=== PATIENT | female | born 1960 | race American Indian/Alaskan Native ===

== ENCOUNTER 2017-07-08 16:15 | Inpatient (IN) | payer MEDICAID ==
[~2017-07-08] VITALS: Ht 177.8 cm; Wt 143.6 kg
[~2017-07-08 16:15] MED LIST: COU5T PO; FURO-150 PO; HYDR-4069 PO; INSU100V36 SQ; LANTUS SQ; LISI-600 PO; METO-539 PO; PER10325T PO; POTA8CAP17 PO; SERT100T PO
[2017-07-08] MEDS ORDERED: ONDA8TAB6 PO (18:36)
[2017-07-08 19:08] LABS: BASOPHILS # (AUTO) 0.1 X10'3 (0-0.2); BASOPHILS % (AUTO) 0.4 % (0-1); EOSINOPHILS # (AUTO) 0.2 X10'3 (0-0.9); EOSINOPHILS % (AUTO) 1.4 % (0-6); HEMATOCRIT 25.1 % (35.0-45.0); HEMOGLOBIN 7.9 g/dl (12.0-16.0); LYMPHOCYTES # (AUTO) 0.9 X10'3 (1.1-4.8); LYMPHOCYTES % (AUTO) 6.5 % (21-51); MEAN CORPUSCULAR HEMOGLOBIN 23.9 PG (27.0-31.0); MEAN CORPUSCULAR HGB CONC 31.7 % (33.0-36.5); MEAN CORPUSCULAR VOLUME 75.4 FL (78-98); MEAN PLATELET VOLUME 7.7 FL (7.4-10.4); MONOCYTES # (AUTO) 0.5 X10'3 (0-0.9); MONOCYTES % (AUTO) 3.7 % (2-12); NEUTROPHILS # (AUTO) 12.8 X10'3 (1.8-7.7); PLATELET COUNT 364 X10'3 (140-440); RED BLOOD COUNT 3.33 X10'6 (4.20-5.60); RED CELL DISTRIBUTION WIDTH 19.8 % (11.5-14.5); WHITE BLOOD COUNT 14.6 X10'3 (4.5-11.0)
[2017-07-08 19:19] LABS: ALANINE AMINOTRANSFERASE 40 U/L (12-78); ALBUMIN 1.7 G/DL (3.4-5.0); ALBUMIN/GLOBULIN RATIO 0.3 (1.1-1.5); ALKALINE PHOSPHATASE 295 IU/L (46-116); ANION GAP 8 (8-16); ASPARTATE AMINO TRANSFERASE 26 U/L (10-37); BILIRUBIN,TOTAL 0.3 MG/DL (0.1-1.0); BLOOD UREA NITROGEN 30 MG/DL (7-18); BUN/CREATININE RATIO 21.4 (6.6-38.0); CHLORIDE 97 MMOL/L (99-107); GLUCOSE 328 MG/DL (70-104); POTASSIUM 5.3 MMOL/L (3.5-5.1); SODIUM 132 MMOL/L (135-145); TOTAL CARBON DIOXIDE 27.2 MMOL/L (24-32); TOTAL PROTEIN 7.2 G/DL (6.4-8.2); eGFR 39 ML/MIN
[2017-07-08] MEDS ORDERED: piperacillin/tazo 3.375gm/50ml 50 ML IV ONE (20:00)
[2017-07-08] MEDS ORDERED: vancomycin/NS 1 GM ADD-VANTAGE 250 ML IV ONE (20:00)
[2017-07-08 20:07] LABS: TOTAL CELLS COUNTED 100
[2017-07-08 20:08] LABS: ANISOCYTOSIS 1+; HYPOCHROMASIA 1+; PLATELET ESTIMATE NORMAL; POLYCHROMASIA 1+; TOXIC GRANULATION 1+
[2017-07-08] MEDS ORDERED: normal saline 1000ml 1,000 ML IV ONE (21:50)
[2017-07-08] MEDS ORDERED: HYDROcodone/acetaminophen 10/325mg tab PO ONE (21:50)
[2017-07-09] MEDS: sodium chloride 0.45% 1,000 ML IV SCH ×3 (00:01→16:12)
[2017-07-09] MEDS ORDERED: mag hydrox/Alum hydrox/simeth 30ml oral suspension PO PRN (00:05)
[2017-07-09] MEDS ORDERED: magnesium 2GM in 50ml NS 50 ML IV PRN (00:05)
[2017-07-09] MEDS ORDERED: potassium Cl 20 mEq SR tablet PO PRN ×2 (00:05)
[2017-07-09] MEDS ORDERED: magnesium 4gm in 100ml NS 100 ML IV PRN (00:05)
[2017-07-09] MEDS ORDERED: potassium Cl 40MEQ/NS 500ml 500 ML IV PRN ×2 (00:05)
[2017-07-09] MEDS ORDERED: HYDROmorphone 1 mg/ml syringe IV PRN ×2 (00:05)
[2017-07-09] MEDS ORDERED: magnesium hydroxide 30ml (MOM) UD suspension PO PRN (00:05)
[2017-07-09] MEDS ORDERED: magnesium Cl slow-release 64mg tablet PO PRN (00:05)
[2017-07-09 02:00] VITALS: BP 131/85
[2017-07-09] MEDS ORDERED: dextrose ORAL solution 15 GM/59 ML bottle PO PRN ×2 (02:40)
[2017-07-09] MEDS ORDERED: glucagon, human recombinant 1mg kit SUBCUT PRN (02:40)
[2017-07-09] MEDS ORDERED: MESSAGE TO PHARMACY PO ONE (02:40)
[2017-07-09] MEDS ORDERED: dextrose 50%-water 50ml dispensing syringe IV PRN ×2 (02:40)
[2017-07-09] MEDS ORDERED: insulin Lispro (HumaLOG) vial - multi-dose SQ ONE (03:12)
[2017-07-09] MEDS: insulin Lispro (HumaLOG) vial - multi-dose SQ SCH ×4 (03:16→20:04)
[2017-07-09 07:00] VITALS: BP 129/74
[2017-07-09] MEDS: furosemide 20MG tablet PO SCH (07:45)
[2017-07-09] MEDS: sertraline 50mg tablet PO SCH (07:45)
[2017-07-09] MEDS: hydrALAZINE 25 MG tablet PO SCH (07:46)
[2017-07-09] MEDS: lisinopril 20mg tablet PO SCH (07:46)
[2017-07-09] MEDS: metoprolol succinate 25mg (24-HOUR) SR. Tablet PO SCH ×2 (07:46→20:05)
[2017-07-09] MEDS: acetaminophen 325mg tablet PO PRN ×2 (07:47→20:11)
[2017-07-09 07:53] VITALS: BP 129/74
[2017-07-09] MEDS ORDERED: POTASSIUM CHLORIDE 8 MEQ PO SCH (08:00)
[2017-07-09] MEDS: K and/or MAG REPLACEMENT MC SCH (08:00)
[2017-07-09] MEDS ORDERED: vancomycin/NS 1 GM ADD-VANTAGE 250 ML IV SCH (08:00)
[2017-07-09] MEDS: piperacillin/tazo 4.5gm/100ml 100 ML IV SCH ×2 (09:21→16:13)
[2017-07-09 09:41] LABS: BASOPHILS % (AUTO) 0.2 % (0-1); EOSINOPHILS # (AUTO) 0.2 X10'3 (0-0.9); EOSINOPHILS % (AUTO) 1.7 % (0-6); LYMPHOCYTES # (AUTO) 0.8 X10'3 (1.1-4.8); LYMPHOCYTES % (AUTO) 6.8 % (21-51); MEAN CORPUSCULAR HEMOGLOBIN 24.1 PG (27.0-31.0); MEAN CORPUSCULAR HGB CONC 32.4 % (33.0-36.5); MEAN CORPUSCULAR VOLUME 74.6 FL (78-98); MEAN PLATELET VOLUME 7.8 FL (7.4-10.4); MONOCYTES # (AUTO) 0.4 X10'3 (0-0.9); MONOCYTES % (AUTO) 3.7 % (2-12); NEUTROPHILS # (AUTO) 10.2 X10'3 (1.8-7.7); NEUTROPHILS % (AUTO) 87.6 % (42-75); PRE OP HEMATOCRIT 23.9 % (35.0-45.0); PRE OP PLATELET COUNT 328 X10'3 (140-440); RED BLOOD COUNT 3.21 X10'6 (4.20-5.60); RED CELL DISTRIBUTION WIDTH 19.7 % (11.5-14.5)
[2017-07-09 09:49] LABS: PRE OP PROTIME 41.1 SECONDS (9.0-12.0)
[2017-07-09 09:56] LABS: PRE OP INR 4.2 INR
[2017-07-09 09:59] LABS: ALBUMIN 1.6 G/DL (3.4-5.0); ALBUMIN/GLOBULIN RATIO 0.3 (1.1-1.5); ALKALINE PHOSPHATASE 270 IU/L (46-116); BLOOD UREA NITROGEN 29 MG/DL (7-18); BUN/CREATININE RATIO 23.2 (6.6-38.0); CALCIUM 8.8 MG/DL (8.5-10.1); CHLORIDE 99 MMOL/L (99-107); CREATININE 1.25 MG/DL (0.40-0.90); PRE OP ALT 39 U/L (30-65); PRE OP ANION GAP 7 (8-16); PRE OP AST 23 U/L (10-37); PRE OP BILIRUB, TOTAL 0.4 MG/DL (0.0-1.0); PRE OP POTASSIUM 4.9 MMOL/L (3.4-5.1); PRE OP SODIUM 134 MMOL/L (135-145); TOTAL CARBON DIOXIDE 27.9 MMOL/L (24-32); TOTAL PROTEIN 7.1 G/DL (6.4-8.2); eGFR 44 ML/MIN
[2017-07-09 10:05] LABS: PRE OP GLUCOSE 274 MG/DL (70-104)
[2017-07-09 10:25] LABS: PRE OP HEMOGLOBIN 7.7 g/dL (12.0-16.0)
[2017-07-09 11:00] VITALS: BP 134/74
[2017-07-09] MEDS ORDERED: phytonadione 10 MG/1 ML amp PO ONE (11:15)
[2017-07-09 16:17] LABS: HEMATOCRIT 22.5 % (35.0-45.0); HEMOGLOBIN 7.4 g/dl (12.0-16.0); MEAN CORPUSCULAR HEMOGLOBIN 24.2 PG (27.0-31.0); MEAN CORPUSCULAR HGB CONC 32.8 % (33.0-36.5); MEAN CORPUSCULAR VOLUME 73.9 FL (78-98); MEAN PLATELET VOLUME 7.7 FL (7.4-10.4); PLATELET COUNT 341 X10'3 (140-440); RED BLOOD COUNT 3.04 X10'6 (4.20-5.60); RED CELL DISTRIBUTION WIDTH 19.9 % (11.5-14.5); WHITE BLOOD COUNT 11.2 X10'3 (4.5-11.0)
[2017-07-09 17:08] LABS: BASOPHILS % (AUTO) 0.2 % (0-1); EOSINOPHILS # (AUTO) 0.3 X10'3 (0-0.9); EOSINOPHILS % (AUTO) 2.2 % (0-6); HEMOGLOBIN 7.7 g/dl (12.0-16.0); LYMPHOCYTES # (AUTO) 0.8 X10'3 (1.1-4.8); LYMPHOCYTES % (AUTO) 6.2 % (21-51); MEAN CORPUSCULAR HEMOGLOBIN 23.9 PG (27.0-31.0); MEAN CORPUSCULAR VOLUME 74.8 FL (78-98); MEAN PLATELET VOLUME 7.2 FL (7.4-10.4); MONOCYTES # (AUTO) 0.5 X10'3 (0-0.9); MONOCYTES % (AUTO) 3.7 % (2-12); NEUTROPHILS % (AUTO) 87.7 % (42-75); PLATELET COUNT 357 X10'3 (140-440); RED BLOOD COUNT 3.21 X10'6 (4.20-5.60); RED CELL DISTRIBUTION WIDTH 19.2 % (11.5-14.5); WHITE BLOOD COUNT 12.5 X10'3 (4.5-11.0)
[2017-07-09 17:16] LABS: INR 3.2 INR
[2017-07-09] MEDS ORDERED: diphenhydrAMINE 50 mg/ml inj IV ONE (18:50)
[2017-07-09] MEDS: lactobacillus rhamnosus 10,000 MMU CELLS/CAPSULE PO SCH (20:05)
[2017-07-09] MEDS: ondansetron/PF 4mg/2ml inj IV PRN (20:10)
[2017-07-09] MEDS ORDERED: furosemide 40mg/4ml inj IV ONE (20:50)
[2017-07-09] MEDS ORDERED: temazepam 15mg capsule PO PRN (21:00)
[2017-07-09] MEDS: Insulin Detemir pen SQ SCH (21:13)
[2017-07-09 21:29] VITALS: BP 136/64
[2017-07-10] VITALS (13 sets, daily range): BP systolic 109–141; BP diastolic 53–82
[2017-07-10 00:51] LABS: BASOPHILS % (AUTO) 0.2 % (0-1); EOSINOPHILS # (AUTO) 0.1 X10'3 (0-0.9); EOSINOPHILS % (AUTO) 0.4 % (0-6); HEMATOCRIT 24.9 % (35.0-45.0); HEMOGLOBIN 8.1 g/dl (12.0-16.0); LYMPHOCYTES # (AUTO) 1.4 X10'3 (1.1-4.8); LYMPHOCYTES % (AUTO) 9.2 % (21-51); MEAN CORPUSCULAR HEMOGLOBIN 24.2 PG (27.0-31.0); MEAN CORPUSCULAR HGB CONC 32.5 % (33.0-36.5); MEAN CORPUSCULAR VOLUME 74.4 FL (78-98); MEAN PLATELET VOLUME 7.6 FL (7.4-10.4); MONOCYTES # (AUTO) 0.5 X10'3 (0-0.9); MONOCYTES % (AUTO) 3.4 % (2-12); NEUTROPHILS # (AUTO) 12.8 X10'3 (1.8-7.7); NEUTROPHILS % (AUTO) 86.8 % (42-75); PLATELET COUNT 378 X10'3 (140-440); RED BLOOD COUNT 3.35 X10'6 (4.20-5.60); WHITE BLOOD COUNT 14.7 X10'3 (4.5-11.0)
[2017-07-10] MEDS: piperacillin/tazo 4.5gm/100ml 100 ML IV SCH ×3 (02:16→16:10)
[2017-07-10] MEDS: sodium chloride 0.45% 1,000 ML IV SCH ×3 (06:01→21:42)
[2017-07-10 06:05] LABS: BASOPHILS % (AUTO) 0.3 % (0-1); EOSINOPHILS # (AUTO) 0.2 X10'3 (0-0.9); EOSINOPHILS % (AUTO) 2.2 % (0-6); HEMATOCRIT 22.7 % (35.0-45.0); HEMOGLOBIN 7.3 g/dl (12.0-16.0); LYMPHOCYTES # (AUTO) 0.8 X10'3 (1.1-4.8); LYMPHOCYTES % (AUTO) 6.7 % (21-51); MEAN CORPUSCULAR HEMOGLOBIN 24.1 PG (27.0-31.0); MEAN CORPUSCULAR HGB CONC 32.3 % (33.0-36.5); MEAN CORPUSCULAR VOLUME 74.5 FL (78-98); MEAN PLATELET VOLUME 7.6 FL (7.4-10.4); MONOCYTES # (AUTO) 0.5 X10'3 (0-0.9); MONOCYTES % (AUTO) 4.3 % (2-12); NEUTROPHILS # (AUTO) 9.8 X10'3 (1.8-7.7); NEUTROPHILS % (AUTO) 86.5 % (42-75); PLATELET COUNT 344 X10'3 (140-440); RED BLOOD COUNT 3.05 X10'6 (4.20-5.60); RED CELL DISTRIBUTION WIDTH 19.6 % (11.5-14.5); WHITE BLOOD COUNT 11.3 X10'3 (4.5-11.0)
[2017-07-10 06:28] LABS: INR 1.7 INR; PROTHROMBIN TIME 17.1 SECONDS (9.0-12.0)
[2017-07-10 06:56] LABS: ALANINE AMINOTRANSFERASE 36 U/L (12-78); ALBUMIN 1.6 G/DL (3.4-5.0); ALBUMIN/GLOBULIN RATIO 0.3 (1.1-1.5); ALKALINE PHOSPHATASE 280 IU/L (46-116); ANION GAP 8 (8-16); ASPARTATE AMINO TRANSFERASE 25 U/L (10-37); BILIRUBIN,TOTAL 0.7 MG/DL (0.1-1.0); BLOOD UREA NITROGEN 19 MG/DL (7-18); BUN/CREATININE RATIO 16.1 (6.6-38.0); CALCIUM 8.6 MG/DL (8.5-10.1); CHLORIDE 100 MMOL/L (99-107); CHOL/HDL RATIO 4.5 (0.00-4.99); CHOLESTEROL 108 MG/DL (0-200); CREATININE 1.18 MG/DL (0.40-0.90); GLUCOSE 222 MG/DL (70-104); HDL CHOLESTEROL 24 MG/DL (35-60); LDL CHOLESTEROL 70 MG/DL (50-100); MAGNESIUM 1.3 MG/DL (1.5-2.4); POTASSIUM 4.4 MMOL/L (3.5-5.1); SODIUM 136 MMOL/L (135-145); TOTAL CARBON DIOXIDE 27.7 MMOL/L (24-32); TOTAL PROTEIN 6.7 G/DL (6.4-8.2); TRIGLYCERIDES 72 MG/DL (20-135); eGFR 47 ML/MIN
[2017-07-10] MEDS: K and/or MAG REPLACEMENT MC SCH (08:00)
[2017-07-10] MEDS: metoprolol succinate 25mg (24-HOUR) SR. Tablet PO SCH ×2 (08:10→20:51)
[2017-07-10] MEDS: lactobacillus rhamnosus 10,000 MMU CELLS/CAPSULE PO SCH ×2 (08:10→20:52)
[2017-07-10] MEDS: sertraline 50mg tablet PO SCH (08:10)
[2017-07-10] MEDS: lisinopril 20mg tablet PO SCH (08:10)
[2017-07-10] MEDS: hydrALAZINE 25 MG tablet PO SCH (08:10)
[2017-07-10] MEDS: furosemide 20MG tablet PO SCH (08:11)
[2017-07-10] MEDS ORDERED: heparin 10,000 units/1 ML INJ IV ONE (08:40)
[2017-07-10 09:25] LABS: PARTIAL THROMBOPLASTIN TIME 44 SECONDS (22-32)
[2017-07-10] MEDS: insulin Lispro (HumaLOG) vial - multi-dose SQ SCH ×2 (09:28→19:00)
[2017-07-10] MEDS: oxyCODONE/APAP 10/325mg tablet PO PRN ×2 (09:35→17:19)
[2017-07-10 12:14] LABS: BASOPHILS # (AUTO) 0.1 X10'3 (0-0.2); BASOPHILS % (AUTO) 0.8 % (0-1); EOSINOPHILS # (AUTO) 0.2 X10'3 (0-0.9); EOSINOPHILS % (AUTO) 1.9 % (0-6); HEMATOCRIT 24.7 % (35.0-45.0); HEMOGLOBIN 7.8 g/dl (12.0-16.0); LYMPHOCYTES # (AUTO) 0.9 X10'3 (1.1-4.8); LYMPHOCYTES % (AUTO) 7.7 % (21-51); MEAN CORPUSCULAR HEMOGLOBIN 23.7 PG (27.0-31.0); MEAN CORPUSCULAR HGB CONC 31.7 % (33.0-36.5); MEAN CORPUSCULAR VOLUME 74.9 FL (78-98); MEAN PLATELET VOLUME 7.5 FL (7.4-10.4); MONOCYTES # (AUTO) 0.4 X10'3 (0-0.9); MONOCYTES % (AUTO) 3.5 % (2-12); NEUTROPHILS # (AUTO) 10.4 X10'3 (1.8-7.7); NEUTROPHILS % (AUTO) 86.1 % (42-75); PLATELET COUNT 345 X10'3 (140-440); RED BLOOD COUNT 3.29 X10'6 (4.20-5.60); RED CELL DISTRIBUTION WIDTH 20.1 % (11.5-14.5); WHITE BLOOD COUNT 12.1 X10'3 (4.5-11.0)
[2017-07-10 12:44] LABS: OCCULT BLOOD STOOL NEGATIVE (Neg)
[2017-07-10 14:53] LABS: HEMATOCRIT 23.7 % (35.0-45.0); HEMOGLOBIN 7.6 g/dl (12.0-16.0); MEAN CORPUSCULAR HEMOGLOBIN 23.8 PG (27.0-31.0); MEAN CORPUSCULAR HGB CONC 31.9 % (33.0-36.5); MEAN CORPUSCULAR VOLUME 74.7 FL (78-98); MEAN PLATELET VOLUME 7.2 FL (7.4-10.4); PLATELET COUNT 348 X10'3 (140-440); RED BLOOD COUNT 3.18 X10'6 (4.20-5.60); WHITE BLOOD COUNT 10.8 X10'3 (4.5-11.0)
[2017-07-10] MEDS: heparin 10,000 units/1 ML INJ IV PRN ×2 (17:14→23:57)
[2017-07-10] MEDS: Insulin Detemir pen SQ SCH (20:47)
[2017-07-11] VITALS (21 sets, daily range): BP systolic 108–147; BP diastolic 53–80
[2017-07-11] MEDS: piperacillin/tazo 4.5gm/100ml 100 ML IV SCH ×3 (01:10→15:47)
[2017-07-11] MEDS: oxyCODONE/APAP 10/325mg tablet PO PRN (04:00)
[2017-07-11 06:10] LABS: BASOPHILS % (AUTO) 0.3 % (0-1); EOSINOPHILS # (AUTO) 0.3 X10'3 (0-0.9); EOSINOPHILS % (AUTO) 2.5 % (0-6); HEMATOCRIT 26.8 % (35.0-45.0); HEMOGLOBIN 8.6 g/dl (12.0-16.0); LYMPHOCYTES # (AUTO) 1.1 X10'3 (1.1-4.8); LYMPHOCYTES % (AUTO) 10.2 % (21-51); MEAN CORPUSCULAR HEMOGLOBIN 24.8 PG (27.0-31.0); MEAN CORPUSCULAR VOLUME 77.6 FL (78-98); MEAN PLATELET VOLUME 7.6 FL (7.4-10.4); MONOCYTES # (AUTO) 0.5 X10'3 (0-0.9); MONOCYTES % (AUTO) 4.1 % (2-12); NEUTROPHILS # (AUTO) 9.3 X10'3 (1.8-7.7); NEUTROPHILS % (AUTO) 82.9 % (42-75); PLATELET COUNT 330 X10'3 (140-440); RED BLOOD COUNT 3.45 X10'6 (4.20-5.60); RED CELL DISTRIBUTION WIDTH 20.4 % (11.5-14.5); WHITE BLOOD COUNT 11.2 X10'3 (4.5-11.0)
[2017-07-11 06:53] LABS: ALANINE AMINOTRANSFERASE 32 U/L (12-78); ALBUMIN 1.6 G/DL (3.4-5.0); ALBUMIN/GLOBULIN RATIO 0.3 (1.1-1.5); ALKALINE PHOSPHATASE 258 IU/L (46-116); ANION GAP 9 (8-16); ASPARTATE AMINO TRANSFERASE 18 U/L (10-37); BILIRUBIN,TOTAL 1.1 MG/DL (0.1-1.0); BLOOD UREA NITROGEN 16 MG/DL (7-18); BUN/CREATININE RATIO 12.9 (6.6-38.0); CALCIUM 8.5 MG/DL (8.5-10.1); CHLORIDE 101 MMOL/L (99-107); CREATININE 1.24 MG/DL (0.40-0.90); GLUCOSE 194 MG/DL (70-104); MAGNESIUM 1.3 MG/DL (1.5-2.4); POTASSIUM 4.1 MMOL/L (3.5-5.1); SODIUM 137 MMOL/L (135-145); TOTAL CARBON DIOXIDE 26.7 MMOL/L (24-32); TOTAL PROTEIN 6.8 G/DL (6.4-8.2); eGFR 45 ML/MIN
[2017-07-11] MEDS ORDERED: ringers solution, lacted 1,000 ML IV SCH (07:17)
[2017-07-11] MEDS ORDERED: fentaNYL/PF 50MCG/1 ML 2ML syringe IV PRN (07:20)
[2017-07-11] MEDS ORDERED: HYDROmorphone 1 mg/ml syringe IV PRN (07:20)
[2017-07-11] MEDS ORDERED: proCHLORperazine 10 MG/2 ml inj IV PRN (07:20)
[2017-07-11] MEDS ORDERED: ondansetron/PF 4mg/2ml inj IV PRN (07:20)
[2017-07-11] MEDS: lactobacillus rhamnosus 10,000 MMU CELLS/CAPSULE PO SCH ×2 (07:25→21:26)
[2017-07-11] MEDS: sertraline 50mg tablet PO SCH (07:26)
[2017-07-11] MEDS ORDERED: VANCOMYCIN LEVEL IV ONE (07:30)
[2017-07-11] MEDS ORDERED: fentaNYL/PF 50MCG/1 ML 2ML syringe ONE (07:41)
[2017-07-11] MEDS ORDERED: midazolam 2 mg/2 ml injection ONE (07:41)
[2017-07-11] MEDS: lisinopril 20mg tablet PO SCH (07:42)
[2017-07-11] MEDS ORDERED: LIDOcaine 2% (20mg/ml) 5ml vial ONE (07:42)
[2017-07-11] MEDS: hydrALAZINE 25 MG tablet PO SCH (07:42)
[2017-07-11] MEDS: metoprolol succinate 25mg (24-HOUR) SR. Tablet PO SCH ×2 (07:42→21:26)
[2017-07-11] MEDS ORDERED: rocuronium 10mg/ml inj IV ONE (07:42)
[2017-07-11] MEDS ORDERED: propofol inj 20 ML IV ONE (07:42)
[2017-07-11] MEDS: furosemide 20MG tablet PO SCH (08:00)
[2017-07-11] MEDS: K and/or MAG REPLACEMENT MC SCH (08:00)
[2017-07-11] MEDS ORDERED: LIDOcaine 1%/PF (10mg/ml) 5ml vial ONE ×2 (09:07)
[2017-07-11] MEDS ORDERED: sevoflurane 250ml liquid IH ONE (09:18)
[2017-07-11] MEDS ORDERED: ketamine 10mg/ml 20ml inj ONE (10:06)
[2017-07-11] MEDS ORDERED: dexamethasone sod phosphate 4mg/ml inj. ONE (10:13)
[2017-07-11] MEDS ORDERED: ondansetron/PF 4mg/2ml inj ONE (10:13)
[2017-07-11] MEDS ORDERED: glycopyrrolate 0.2mg/ml inj ONE (10:38)
[2017-07-11] MEDS ORDERED: neostigmine methylsulfate 1 MG/ML 10ml vial ONE (10:38)
[2017-07-11] MEDS: sodium chloride 0.45% 1,000 ML IV SCH (12:01)
[2017-07-11] MEDS ORDERED: HYDROmorphone/NS 1 mg/ml CADD 50 ML IV SCH (12:10)
[2017-07-11 13:18] LABS: BASOPHILS % (AUTO) 0.4 % (0-1); EOSINOPHILS # (AUTO) 0.2 X10'3 (0-0.9); HEMATOCRIT 27.7 % (35.0-45.0); HEMOGLOBIN 8.9 g/dl (12.0-16.0); LYMPHOCYTES # (AUTO) 0.6 X10'3 (1.1-4.8); LYMPHOCYTES % (AUTO) 5.9 % (21-51); MEAN CORPUSCULAR HEMOGLOBIN 24.6 PG (27.0-31.0); MEAN CORPUSCULAR HGB CONC 32.2 % (33.0-36.5); MEAN CORPUSCULAR VOLUME 76.3 FL (78-98); MEAN PLATELET VOLUME 7.4 FL (7.4-10.4); MONOCYTES # (AUTO) 0.2 X10'3 (0-0.9); NEUTROPHILS # (AUTO) 9.2 X10'3 (1.8-7.7); NEUTROPHILS % (AUTO) 89.7 % (42-75); PLATELET COUNT 337 X10'3 (140-440); RED BLOOD COUNT 3.63 X10'6 (4.20-5.60); RED CELL DISTRIBUTION WIDTH 20.1 % (11.5-14.5); WHITE BLOOD COUNT 10.2 X10'3 (4.5-11.0)
[2017-07-11 13:29] LABS: INR 1.4 INR; PROTHROMBIN TIME 14.5 SECONDS (9.0-12.0)
[2017-07-11] MEDS ORDERED: heparin 10,000 units/1 ML INJ IV ONE (16:30)
[2017-07-11] MEDS: vancomycin/NS 1 GM ADD-VANTAGE 250 ML IV SCH (17:10)
[2017-07-11] MEDS: heparin 10,000 units/1 ML INJ IV PRN (17:41)
[2017-07-11 17:47] LABS: BASOPHILS % (AUTO) 0.3 % (0-1); EOSINOPHILS # (AUTO) 0.2 X10'3 (0-0.9); EOSINOPHILS % (AUTO) 1.7 % (0-6); LYMPHOCYTES # (AUTO) 0.6 X10'3 (1.1-4.8); LYMPHOCYTES % (AUTO) 5.8 % (21-51); MEAN CORPUSCULAR HEMOGLOBIN 24.5 PG (27.0-31.0); MEAN CORPUSCULAR VOLUME 76.5 FL (78-98); MEAN PLATELET VOLUME 7.6 FL (7.4-10.4); MONOCYTES # (AUTO) 0.1 X10'3 (0-0.9); NEUTROPHILS # (AUTO) 9.1 X10'3 (1.8-7.7); NEUTROPHILS % (AUTO) 91.2 % (42-75); PLATELET COUNT 341 X10'3 (140-440); RED BLOOD COUNT 3.66 X10'6 (4.20-5.60); RED CELL DISTRIBUTION WIDTH 20.3 % (11.5-14.5)
[2017-07-11 18:01] LABS: INR 1.5 INR; PARTIAL THROMBOPLASTIN TIME 37 SECONDS (22-32); PROTHROMBIN TIME 14.9 SECONDS (9.0-12.0)
[2017-07-11] MEDS: insulin Lispro (HumaLOG) vial - multi-dose SQ SCH (19:00)
[2017-07-11] MEDS: Insulin Detemir pen SQ SCH (21:31)
[2017-07-12] VITALS: BP 106/57
[2017-07-12] MEDS: vancomycin/NS 1 GM ADD-VANTAGE 250 ML IV SCH (00:03)
[2017-07-12 00:45] LABS: BASOPHILS % (AUTO) 0.1 % (0-1); EOSINOPHILS # (AUTO) 0.2 X10'3 (0-0.9); EOSINOPHILS % (AUTO) 1.7 % (0-6); HEMATOCRIT 27.9 % (35.0-45.0); LYMPHOCYTES # (AUTO) 0.6 X10'3 (1.1-4.8); LYMPHOCYTES % (AUTO) 6.5 % (21-51); MEAN CORPUSCULAR HEMOGLOBIN 24.6 PG (27.0-31.0); MEAN CORPUSCULAR HGB CONC 32.4 % (33.0-36.5); MEAN CORPUSCULAR VOLUME 76.2 FL (78-98); MONOCYTES # (AUTO) 0.4 X10'3 (0-0.9); MONOCYTES % (AUTO) 3.8 % (2-12); NEUTROPHILS # (AUTO) 8.5 X10'3 (1.8-7.7); NEUTROPHILS % (AUTO) 87.9 % (42-75); PLATELET COUNT 377 X10'3 (140-440); RED BLOOD COUNT 3.67 X10'6 (4.20-5.60); RED CELL DISTRIBUTION WIDTH 20.5 % (11.5-14.5); WHITE BLOOD COUNT 9.7 X10'3 (4.5-11.0)
[2017-07-12] MEDS: sodium chloride 0.45% 1,000 ML IV SCH ×3 (01:03→16:27)
[2017-07-12] MEDS: heparin 10,000 units/1 ML INJ IV PRN ×2 (02:15→11:00)
[2017-07-12] MEDS: piperacillin/tazo 4.5gm/100ml 100 ML IV SCH ×3 (02:18→16:25)
[2017-07-12 05:42] LABS: BASOPHILS % (AUTO) 0.3 % (0-1); EOSINOPHILS # (AUTO) 0.1 X10'3 (0-0.9); EOSINOPHILS % (AUTO) 1.3 % (0-6); HEMOGLOBIN 9.1 g/dl (12.0-16.0); LYMPHOCYTES # (AUTO) 0.8 X10'3 (1.1-4.8); MEAN CORPUSCULAR HEMOGLOBIN 24.9 PG (27.0-31.0); MEAN CORPUSCULAR HGB CONC 32.5 % (33.0-36.5); MEAN CORPUSCULAR VOLUME 76.6 FL (78-98); MEAN PLATELET VOLUME 7.5 FL (7.4-10.4); MONOCYTES # (AUTO) 0.4 X10'3 (0-0.9); MONOCYTES % (AUTO) 3.8 % (2-12); NEUTROPHILS # (AUTO) 8.5 X10'3 (1.8-7.7); NEUTROPHILS % (AUTO) 86.6 % (42-75); PLATELET COUNT 356 X10'3 (140-440); RED BLOOD COUNT 3.66 X10'6 (4.20-5.60); RED CELL DISTRIBUTION WIDTH 20.8 % (11.5-14.5); WHITE BLOOD COUNT 9.8 X10'3 (4.5-11.0)
[2017-07-12 06:03] LABS: ALANINE AMINOTRANSFERASE 24 U/L (12-78); ALBUMIN 1.6 G/DL (3.4-5.0); ALBUMIN/GLOBULIN RATIO 0.3 (1.1-1.5); ALKALINE PHOSPHATASE 219 IU/L (46-116); ANION GAP 11 (8-16); ASPARTATE AMINO TRANSFERASE 19 U/L (10-37); BILIRUBIN,TOTAL 0.6 MG/DL (0.1-1.0); BLOOD UREA NITROGEN 25 MG/DL (7-18); BUN/CREATININE RATIO 14.3 (6.6-38.0); CALCIUM 8.6 MG/DL (8.5-10.1); CHLORIDE 98 MMOL/L (99-107); CREATININE 1.75 MG/DL (0.40-0.90); GLUCOSE 294 MG/DL (70-104); MAGNESIUM 1.4 MG/DL (1.5-2.4); POTASSIUM 4.5 MMOL/L (3.5-5.1); SODIUM 133 MMOL/L (135-145); TOTAL CARBON DIOXIDE 24.5 MMOL/L (24-32); TOTAL PROTEIN 6.9 G/DL (6.4-8.2); eGFR 30 ML/MIN
[2017-07-12 07:00] VITALS: BP 109/56
[2017-07-12] MEDS: HYDROmorphone/NS 1 mg/ml CADD 50 ML IV SCH ×8 (07:00→23:00)
[2017-07-12] MEDS ORDERED: CADD PCA waste documentation MC SCH (07:20)
[2017-07-12] MEDS: lisinopril 20mg tablet PO SCH (07:57)
[2017-07-12] MEDS: furosemide 20MG tablet PO SCH (07:57)
[2017-07-12] MEDS: hydrALAZINE 25 MG tablet PO SCH (07:57)
[2017-07-12] MEDS: sertraline 50mg tablet PO SCH (07:57)
[2017-07-12] MEDS: metoprolol succinate 25mg (24-HOUR) SR. Tablet PO SCH ×2 (07:57→20:00)
[2017-07-12] MEDS: lactobacillus rhamnosus 10,000 MMU CELLS/CAPSULE PO SCH ×2 (07:58→21:39)
[2017-07-12] MEDS: K and/or MAG REPLACEMENT MC SCH (08:00)
[2017-07-12] MEDS ORDERED: vancomycin/NS 1 GM ADD-VANTAGE 250 ML IV SCH (10:48)
[2017-07-12] MEDS: insulin Lispro (HumaLOG) vial - multi-dose SQ SCH ×2 (10:54→19:00)
[2017-07-12 11:00] VITALS: BP_SYST 104; BP_SYST 157; BP_DIAS 58; BP_DIAS 65
[2017-07-12 17:17] LABS: BASOPHILS # (AUTO) 0.1 X10'3 (0-0.2); BASOPHILS % (AUTO) 0.9 % (0-1); EOSINOPHILS # (AUTO) 0.2 X10'3 (0-0.9); EOSINOPHILS % (AUTO) 2.2 % (0-6); HEMATOCRIT 29.1 % (35.0-45.0); HEMOGLOBIN 9.4 g/dl (12.0-16.0); LYMPHOCYTES # (AUTO) 1.4 X10'3 (1.1-4.8); LYMPHOCYTES % (AUTO) 14.2 % (21-51); MEAN CORPUSCULAR HEMOGLOBIN 24.6 PG (27.0-31.0); MEAN CORPUSCULAR HGB CONC 32.2 % (33.0-36.5); MEAN CORPUSCULAR VOLUME 76.2 FL (78-98); MONOCYTES # (AUTO) 0.4 X10'3 (0-0.9); MONOCYTES % (AUTO) 4.2 % (2-12); NEUTROPHILS # (AUTO) 7.9 X10'3 (1.8-7.7); NEUTROPHILS % (AUTO) 78.5 % (42-75); PLATELET COUNT 380 X10'3 (140-440); RED BLOOD COUNT 3.82 X10'6 (4.20-5.60); RED CELL DISTRIBUTION WIDTH 20.9 % (11.5-14.5); WHITE BLOOD COUNT 10.1 X10'3 (4.5-11.0)
[2017-07-12 17:31] LABS: INR 1.7 INR; PROTHROMBIN TIME 17.5 SECONDS (9.0-12.0)
[2017-07-12 20:00] VITALS: BP 84/42
[2017-07-12] MEDS ORDERED: warfarin 5mg tablet PO ONE (21:00)
[2017-07-12] MEDS: Insulin Detemir pen SQ SCH (21:50)
[2017-07-13] MEDS: vancomycin/NS 1 GM ADD-VANTAGE 250 ML IV SCH ×2 (00:42→12:03)
[2017-07-13 00:55] VITALS: BP 97/43
[2017-07-13] MEDS: HYDROmorphone/NS 1 mg/ml CADD 50 ML IV SCH ×12 (01:00→23:00)
[2017-07-13] MEDS: sodium chloride 0.45% 1,000 ML IV SCH ×3 (02:34→18:29)
[2017-07-13] MEDS: piperacillin/tazo 4.5gm/100ml 100 ML IV SCH ×3 (02:34→15:33)
[2017-07-13 05:58] LABS: BASOPHILS % (AUTO) 0.6 % (0-1); EOSINOPHILS # (AUTO) 0.2 X10'3 (0-0.9); EOSINOPHILS % (AUTO) 2.5 % (0-6); HEMATOCRIT 28.1 % (35.0-45.0); LYMPHOCYTES # (AUTO) 1.3 X10'3 (1.1-4.8); LYMPHOCYTES % (AUTO) 16.5 % (21-51); MEAN CORPUSCULAR HEMOGLOBIN 24.5 PG (27.0-31.0); MEAN CORPUSCULAR VOLUME 76.5 FL (78-98); MEAN PLATELET VOLUME 7.3 FL (7.4-10.4); MONOCYTES # (AUTO) 0.4 X10'3 (0-0.9); NEUTROPHILS # (AUTO) 5.8 X10'3 (1.8-7.7); NEUTROPHILS % (AUTO) 75.4 % (42-75); PLATELET COUNT 354 X10'3 (140-440); RED BLOOD COUNT 3.68 X10'6 (4.20-5.60); RED CELL DISTRIBUTION WIDTH 21.3 % (11.5-14.5); WHITE BLOOD COUNT 7.7 X10'3 (4.5-11.0)
[2017-07-13 06:11] LABS: INR 1.8 INR; PROTHROMBIN TIME 18.2 SECONDS (9.0-12.0)
[2017-07-13 06:19] LABS: ALANINE AMINOTRANSFERASE 22 U/L (12-78); ALBUMIN 1.6 G/DL (3.4-5.0); ALBUMIN/GLOBULIN RATIO 0.3 (1.1-1.5); ALKALINE PHOSPHATASE 189 IU/L (46-116); ANION GAP 13 (8-16); ASPARTATE AMINO TRANSFERASE 19 U/L (10-37); BILIRUBIN,TOTAL 0.5 MG/DL (0.1-1.0); BLOOD UREA NITROGEN 33 MG/DL (7-18); CALCIUM 8.6 MG/DL (8.5-10.1); CHLORIDE 100 MMOL/L (99-107); CREATININE 2.75 MG/DL (0.40-0.90); GLUCOSE 122 MG/DL (70-104); MAGNESIUM 1.6 MG/DL (1.5-2.4); SODIUM 137 MMOL/L (135-145); TOTAL PROTEIN 6.7 G/DL (6.4-8.2); eGFR 18 ML/MIN
[2017-07-13 07:22] VITALS: BP 120/56
[2017-07-13] MEDS: hydrALAZINE 25 MG tablet PO SCH (07:35)
[2017-07-13] MEDS: lactobacillus rhamnosus 10,000 MMU CELLS/CAPSULE PO SCH ×2 (07:35→19:22)
[2017-07-13] MEDS: K and/or MAG REPLACEMENT MC SCH (07:35)
[2017-07-13] MEDS: lisinopril 20mg tablet PO SCH (07:36)
[2017-07-13] MEDS: sertraline 50mg tablet PO SCH (07:36)
[2017-07-13] MEDS: metoprolol succinate 25mg (24-HOUR) SR. Tablet PO SCH ×2 (07:36→19:22)
[2017-07-13] MEDS: furosemide 20MG tablet PO SCH (07:36)
[2017-07-13] MEDS: insulin Lispro (HumaLOG) vial - multi-dose SQ SCH ×3 (08:20→19:20)
[2017-07-13 10:56] VITALS: BP 123/59
[2017-07-13 20:00] VITALS: BP 154/87
[2017-07-13] MEDS ORDERED: piperacillin-tazo 2.25gm/50ml 50 ML IV SCH (20:00)
[2017-07-13] MEDS: Insulin Detemir pen SQ SCH (20:53)
[2017-07-13] MEDS ORDERED: warfarin 5mg tablet PO ONE (21:00)
[2017-07-13] MEDS ORDERED: VANCOMYCIN LEVEL IV ONE (22:30)
[2017-07-14 00:18] VITALS: BP 149/109
[2017-07-14] MEDS: HYDROmorphone/NS 1 mg/ml CADD 50 ML IV SCH ×8 (01:00→15:00)
[2017-07-14 02:03] LABS: INR 2.2 INR; PROTHROMBIN TIME 21.7 SECONDS (9.0-12.0)
[2017-07-14 02:26] LABS: BASOPHILS % (AUTO) 0.4 % (0-1); EOSINOPHILS # (AUTO) 0.2 X10'3 (0-0.9); HEMATOCRIT 29.8 % (35.0-45.0); HEMOGLOBIN 9.6 g/dl (12.0-16.0); LYMPHOCYTES % (AUTO) 15.1 % (21-51); MEAN CORPUSCULAR HEMOGLOBIN 24.4 PG (27.0-31.0); MEAN CORPUSCULAR HGB CONC 32.2 % (33.0-36.5); MEAN CORPUSCULAR VOLUME 75.8 FL (78-98); MEAN PLATELET VOLUME 7.4 FL (7.4-10.4); MONOCYTES # (AUTO) 0.4 X10'3 (0-0.9); MONOCYTES % (AUTO) 6.1 % (2-12); NEUTROPHILS # (AUTO) 4.8 X10'3 (1.8-7.7); NEUTROPHILS % (AUTO) 75.4 % (42-75); PLATELET COUNT 324 X10'3 (140-440); RED BLOOD COUNT 3.93 X10'6 (4.20-5.60); RED CELL DISTRIBUTION WIDTH 20.8 % (11.5-14.5); WHITE BLOOD COUNT 6.4 X10'3 (4.5-11.0)
[2017-07-14] MEDS: sodium chloride 0.45% 1,000 ML IV SCH ×2 (02:32→14:12)
[2017-07-14] MEDS: K and/or MAG REPLACEMENT MC SCH (08:00)
[2017-07-14 08:16] LABS: ALANINE AMINOTRANSFERASE 24 U/L (12-78); ALBUMIN 1.7 G/DL (3.4-5.0); ALBUMIN/GLOBULIN RATIO 0.3 (1.1-1.5); ALKALINE PHOSPHATASE 186 IU/L (46-116); ANION GAP 12 (8-16); ASPARTATE AMINO TRANSFERASE 17 U/L (10-37); BILIRUBIN,TOTAL 0.5 MG/DL (0.1-1.0); BLOOD UREA NITROGEN 30 MG/DL (7-18); BUN/CREATININE RATIO 13.3 (6.6-38.0); CHLORIDE 104 MMOL/L (99-107); CREATININE 2.26 MG/DL (0.40-0.90); GLUCOSE 165 MG/DL (70-104); POTASSIUM 4.2 MMOL/L (3.5-5.1); SODIUM 141 MMOL/L (135-145); TOTAL CARBON DIOXIDE 25.2 MMOL/L (24-32); TOTAL PROTEIN 6.9 G/DL (6.4-8.2); eGFR 22 ML/MIN
[2017-07-14 08:26] LABS: MAGNESIUM 1.6 MG/DL (1.5-2.4)
[2017-07-14 08:39] LABS: VANCOMYCIN,TROUGH 46.5 UG/ML (6.0-14.0)
[2017-07-14] MEDS: lactobacillus rhamnosus 10,000 MMU CELLS/CAPSULE PO SCH ×2 (09:43→20:23)
[2017-07-14] MEDS: hydrALAZINE 25 MG tablet PO SCH (09:43)
[2017-07-14] MEDS: sertraline 50mg tablet PO SCH (09:43)
[2017-07-14] MEDS: metoprolol succinate 25mg (24-HOUR) SR. Tablet PO SCH ×2 (09:43→20:24)
[2017-07-14] MEDS: lisinopril 20mg tablet PO SCH (09:44)
[2017-07-14] MEDS: insulin Lispro (HumaLOG) vial - multi-dose SQ SCH ×3 (09:47→18:52)
[2017-07-14] MEDS: oxyCODONE/APAP 10/325mg tablet PO PRN (09:58)
[2017-07-14 11:15] VITALS: BP 149/93
[2017-07-14] MEDS ORDERED: HYDROcodone/acetaminophen 5mg/325mg tablet PO PRN (14:35)
[2017-07-14 20:00] VITALS: BP 155/89
[2017-07-14] MEDS ORDERED: warfarin 3mg tablet PO ONE (21:00)
[2017-07-14] MEDS: Insulin Detemir pen SQ SCH (21:06)
[2017-07-15] VITALS: BP 158/77
[2017-07-15] MEDS: sodium chloride 0.45% 1,000 ML IV SCH ×2 (00:07→08:27)
[2017-07-15] MEDS: HYDROcodone/acetaminophen 10/325mg tab PO PRN ×3 (01:57→16:38)
[2017-07-15 06:50] LABS: INR 2.4 INR; PROTHROMBIN TIME 24.2 SECONDS (9.0-12.0)
[2017-07-15 08:00] VITALS: BP 158/76
[2017-07-15] MEDS: K and/or MAG REPLACEMENT MC SCH (08:00)
[2017-07-15] MEDS: lactobacillus rhamnosus 10,000 MMU CELLS/CAPSULE PO SCH (08:23)
[2017-07-15] MEDS: sertraline 50mg tablet PO SCH (08:23)
[2017-07-15] MEDS: lisinopril 20mg tablet PO SCH (08:23)
[2017-07-15] MEDS: metoprolol succinate 25mg (24-HOUR) SR. Tablet PO SCH (08:23)
[2017-07-15] MEDS: hydrALAZINE 25 MG tablet PO SCH (08:23)
[2017-07-15] MEDS: insulin Lispro (HumaLOG) vial - multi-dose SQ SCH ×2 (09:54→13:41)
[2017-07-15 11:00] VITALS: BP 151/78
[2017-07-15] MEDS ORDERED: magnesium Cl slow-release 64mg tablet PO PRN (11:45)
[2017-07-15] MEDS ORDERED: potassium Cl 20 mEq SR tablet PO PRN ×2 (11:45)
[2017-07-15] MEDS: ondansetron/PF 4mg/2ml inj IV PRN (12:12)
[2017-07-15] MEDS ORDERED: warfarin 3mg tablet PO ONE (21:00)
== END 2017-07-15 17:00 | DRG 305 ==
LOC: ER 16:15 → ED HOLD 07-09 00:01 → SUR 3N 07-09 01:50 → PACU 07-11 08:36 → SUR 3N 07-11 12:24
PROVIDERS: ADMIT Internal Medicine; ATTEND Internal Medicine
PROC: 30233N1 Transfusion of Nonautologous Red Blood Cells into Peripheral Vein, Percutaneous Approach (ICD-10-PCS; 2017-07-10)
PROC: 0Y6D0Z3 Detachment at Left Upper Leg, Low, Open Approach (ICD-10-PCS; principal; 2017-07-11 09:18)
DX: E11.52 Type 2 diabetes mellitus with diabetic peripheral angiopathy with gangrene (principal); N17.9 Acute kidney failure, unspecified; E11.22 Type 2 diabetes mellitus with diabetic chronic kidney disease; E11.65 Type 2 diabetes mellitus with hyperglycemia; Z68.42 Body mass index [BMI] 45.0-49.9, adult; I48.91 Unspecified atrial fibrillation; Z89.611 Acquired absence of right leg above knee; E87.5 Hyperkalemia; N18.9 Chronic kidney disease, unspecified; F32.9 Major depressive disorder, single episode, unspecified; L40.9 Psoriasis, unspecified; D63.8 Anemia in other chronic diseases classified elsewhere; E66.01 Morbid (severe) obesity due to excess calories; I12.9 Hypertensive chronic kidney disease with stage 1 through stage 4 chronic kidney disease, or unspecified chronic kidney disease; I25.10 Atherosclerotic heart disease of native coronary artery without angina pectoris; I25.2 Old myocardial infarction; Z95.1 Presence of aortocoronary bypass graft; Z79.4 Long term (current) use of insulin; Z79.01 Long term (current) use of anticoagulants; Z86.73 Personal history of transient ischemic attack (TIA), and cerebral infarction without residual deficits; Z87.891 Personal history of nicotine dependence; Z80.0 Family history of malignant neoplasm of digestive organs; Z82.49 Family history of ischemic heart disease and other diseases of the circulatory system; Z83.3 Family history of diabetes mellitus
CPT/HCPCS: 36415; 73610; 80053; 80061; 80202; 82272; 82948; 83036; 83735; 83880; 85025; 85027; 85610; 85651; 85730; 86885; 86900; 86901; 86920; 87070; 93005; 96365; 96366; 96367; 97161; 97530; 99285; A6222; A6223; A6255; A6257; A6446; A6449; A6454; A7000; J1100; J1170; J1644; J2001; J2250; J2405; J2543; J2704; J2710; J3010; J3370; J3430; J3490; J7030; J7120; P9016

== ENCOUNTER 2017-12-27 14:49 | Day surgery (SDC) | payer MEDICAID ==
[2017-12-24 11:50] LABS: BASOPHILS # (AUTO) 0.1 X10'3 (0-0.2); EOSINOPHILS # (AUTO) 0.1 X10'3 (0-0.9); EOSINOPHILS % (AUTO) 2.7 % (0-6); HEMATOCRIT 40.7 % (35.0-45.0); LYMPHOCYTES # (AUTO) 1.3 X10'3 (1.1-4.8); MEAN CORPUSCULAR HEMOGLOBIN 25.6 PG (27.0-31.0); MEAN CORPUSCULAR HGB CONC 31.9 % (33.0-36.5); MEAN CORPUSCULAR VOLUME 80.3 FL (78-98); MEAN PLATELET VOLUME 10.6 FL (7.4-10.4); MONOCYTES # (AUTO) 0.2 X10'3 (0-0.9); MONOCYTES % (AUTO) 4.3 % (2-12); NEUTROPHILS # (AUTO) 3.4 X10'3 (1.8-7.7); PLATELET COUNT 170 X10'3 (140-440); RED BLOOD COUNT 5.07 X10'6 (4.20-5.60); RED CELL DISTRIBUTION WIDTH 19.2 % (11.5-14.5); WHITE BLOOD COUNT 5.1 X10'3 (4.5-11.0)
[2017-12-24 12:00] LABS: INR 1.3 INR; PARTIAL THROMBOPLASTIN TIME 39 SECONDS (22-32); PROTHROMBIN TIME 13.4 SECONDS (9.0-12.0)
[2017-12-24 12:07] LABS: ALBUMIN 3.2 G/DL (3.4-5.0); ANION GAP 10 (8-16); BLOOD UREA NITROGEN 19 MG/DL (7-18); BUN/CREATININE RATIO 15.6 (6.6-38.0); CALCIUM 9.4 MG/DL (8.5-10.1); CHLORIDE 97 MMOL/L (99-107); CREATININE 1.22 MG/DL (0.40-0.90); POTASSIUM 4.2 MMOL/L (3.5-5.1); SODIUM 132 MMOL/L (135-145); TOTAL CARBON DIOXIDE 25.4 MMOL/L (24-32); eGFR 45 ML/MIN
[2017-12-24 12:59] LABS: GLUCOSE 566 MG/DL (70-104)
[~2017-12-27] VITALS: Ht 114.3 cm; Wt 135.2 kg
[~2017-12-27 14:49] MED LIST changes: +ONDA8TAB6 PO
[2017-12-27 15:45] VITALS: BP 142/81
[2017-12-27] MEDS ORDERED: diphenhydrAMINE 25mg capsule PO PRN (15:45)
[2017-12-27] MEDS ORDERED: LORazepam 0.5 MG tablet PO PRN (15:45)
[2017-12-27] MEDS ORDERED: normal saline 1000ml 1,000 ML IV SCH (15:45)
[2017-12-27] MEDS ORDERED: ROSU20TA PO (16:01)
[2017-12-27] MEDS ORDERED: VENL50TA4 PO (16:01)
[2017-12-27] MEDS ORDERED: METO25TA6 PO (16:01)
[2017-12-27] MEDS ORDERED: CLOP75TA15 PO (16:01)
[2017-12-27] MEDS ORDERED: LANTUS SQ (16:01)
[2017-12-27] MEDS ORDERED: LORA0.5T PO (16:01)
[2017-12-27] MEDS ORDERED: [UNRECOGNIZED DRUG - CODE] SQ (16:01)
[2017-12-27] MEDS ORDERED: phenylephrine 10mg/ml inj. IV ONE (16:54)
[2017-12-27] MEDS ORDERED: atropine 0.1mg/ml 10ml syringe ONE (16:55)
[2017-12-27] MEDS ORDERED: iohexol 350MG/ML 100ml bottle IV ONE (16:55)
[2017-12-27] MEDS ORDERED: iohexol 350 MG/ML 50ML vial IV ONE (16:55)
[2017-12-27] MEDS ORDERED: heparin 1,000unit/ml 10ml vial 0 ML ONE (16:55)
[2017-12-27] MEDS ORDERED: DOPamine 400mg/D5W 250ml 0 ML IV ONE (16:55)
[2017-12-27] MEDS ORDERED: LIDOcaine 1% w/EPI 1:100,000 30ml vial (MDV) ONE (18:32)
[2017-12-27] MEDS ORDERED: midazolam 2 mg/2 ml injection ONE (18:42)
[2017-12-27 19:25] VITALS: BP 148/69
[2017-12-27 19:46] VITALS: BP 160/86
[2017-12-27 20:00] VITALS: BP 133/64
[2017-12-27 20:15] VITALS: BP 142/71
[2017-12-27 20:29] VITALS: BP 151/79
== END 2017-12-27 20:50 | disposition home or self-care (01) ==
LOC: SSTAY O 14:49
PROVIDERS: ATTEND Internal Medicine Interventional Cardiology
DX: I65.21 Occlusion and stenosis of right carotid artery (principal); G47.33 Obstructive sleep apnea (adult) (pediatric); I25.810 Atherosclerosis of coronary artery bypass graft(s) without angina pectoris; I48.91 Unspecified atrial fibrillation; E11.9 Type 2 diabetes mellitus without complications; I11.0 Hypertensive heart disease with heart failure; I50.21 Acute systolic (congestive) heart failure; E78.4 Other hyperlipidemia; I70.213 Atherosclerosis of native arteries of extremities with intermittent claudication, bilateral legs; I48.2 Chronic atrial fibrillation; F41.9 Anxiety disorder, unspecified; F42.8 Other obsessive-compulsive disorder; F32.89 Other specified depressive episodes; J45.998 Other asthma; Z95.5 Presence of coronary angioplasty implant and graft; Z87.891 Personal history of nicotine dependence; Z89.612 Acquired absence of left leg above knee; Z89.611 Acquired absence of right leg above knee; Z86.14 Personal history of Methicillin resistant Staphylococcus aureus infection; Z95.1 Presence of aortocoronary bypass graft; Z79.01 Long term (current) use of anticoagulants; Z86.79 Personal history of other diseases of the circulatory system; Z79.4 Long term (current) use of insulin; Z85.41 Personal history of malignant neoplasm of cervix uteri; Z86.73 Personal history of transient ischemic attack (TIA), and cerebral infarction without residual deficits; Z79.899 Other long term (current) drug therapy; Z98.890 Other specified postprocedural states
CPT/HCPCS: 36222; 36415; 80048; 82948; 85025; 85610; 85730; A6449; J1644; J2250; J2370; J3490; J7030; Q0163; Q9967; 36223; A6257; C1769; J0461; J1265

== ENCOUNTER 2018-01-06 10:27 | Emergency (ER) | payer MEDICAID ==
[~2018-01-06] VITALS: Ht 111.8 cm; Wt 135.4 kg
[~2018-01-06 10:27] MED LIST changes: +CLOP75TA15 PO; -FURO-150 PO; -HYDR-4069 PO; -INSU100V36 SQ; +LORA0.5T PO; -METO-539 PO; +METO25TA6 PO; -ONDA8TAB6 PO; -PER10325T PO; -POTA8CAP17 PO; +ROSU20TA PO; -SERT100T PO; +VENL50TA4 PO; +[UNRECOGNIZED DRUG - CODE] SQ
[2018-01-06 12:04] LABS: ALANINE AMINOTRANSFERASE 22 U/L (12-78); ALBUMIN 3.1 G/DL (3.4-5.0); ALBUMIN/GLOBULIN RATIO 0.7 (1.1-1.5); ALKALINE PHOSPHATASE 102 IU/L (46-116); ANION GAP 9 (8-16); ASPARTATE AMINO TRANSFERASE 16 U/L (10-37); BILIRUBIN,TOTAL 0.4 MG/DL (0.1-1.0); BLOOD UREA NITROGEN 22 MG/DL (7-18); BUN/CREATININE RATIO 19.5 (6.6-38.0); CALCIUM 9.4 MG/DL (8.5-10.1); CHLORIDE 97 MMOL/L (99-107); CREATININE 1.13 MG/DL (0.40-0.90); POTASSIUM 4.3 MMOL/L (3.5-5.1); SODIUM 133 MMOL/L (135-145); TOTAL CARBON DIOXIDE 26.9 MMOL/L (24-32); TOTAL PROTEIN 7.6 G/DL (6.4-8.2); eGFR 50 ML/MIN
[2018-01-06] MEDS ORDERED: normal saline 1000ML IV soln IVB ONE (12:05)
[2018-01-06 12:08] LABS: GLUCOSE 475 MG/DL (70-104)
[2018-01-06] MEDS ORDERED: insulin regular, human 10 units/0.1 ml syringe IV ONE ×2 (12:10→14:15)
[2018-01-06 12:21] LABS: BASOPHILS % (AUTO) 0.5 % (0-1); EOSINOPHILS # (AUTO) 0.2 X10'3 (0-0.9); EOSINOPHILS % (AUTO) 3.3 % (0-6); HEMATOCRIT 33.9 % (35.0-45.0); HEMOGLOBIN 11.5 g/dl (12.0-16.0); LYMPHOCYTES # (AUTO) 1.3 X10'3 (1.1-4.8); LYMPHOCYTES % (AUTO) 24.7 % (21-51); MEAN CORPUSCULAR HEMOGLOBIN 26.9 PG (27.0-31.0); MEAN CORPUSCULAR VOLUME 79.3 FL (78-98); MEAN PLATELET VOLUME 9.6 FL (7.4-10.4); MONOCYTES # (AUTO) 0.4 X10'3 (0-0.9); MONOCYTES % (AUTO) 6.7 % (2-12); NEUTROPHILS # (AUTO) 3.5 X10'3 (1.8-7.7); NEUTROPHILS % (AUTO) 64.8 % (42-75); PLATELET COUNT 211 X10'3 (140-440); RED BLOOD COUNT 4.28 X10'6 (4.20-5.60); RED CELL DISTRIBUTION WIDTH 20.3 % (11.5-14.5); WHITE BLOOD COUNT 5.4 X10'3 (4.5-11.0)
[2018-01-06 12:43] LABS: COLOR,URINE Yellow (Yellow); GLUCOSE, URINE >=1000 mg/dl (Neg); KETONES,URINE Negative (Neg); LEUKOCYTE ESTERASE ,URINE Negative (Neg); NITRITES, URINE Negative (Neg); OCCULT BLOOD,URINE Trace (Neg); PROTEIN,URINE 100 mg/dl (Neg)
[2018-01-06 12:46] LABS: CLARITY,URINE Slightly Cloudy (Clear); UA COLLECTION TYPE VOIDED
[2018-01-06 12:55] LABS: BACTERIA,URINE 1+ /HPF (Neg); SQUAMOUS EPITHELIAL CELL,UR MODERATE /LPF (FEW)
[2018-01-06] MEDS ORDERED: normal saline 1000ml 1,000 ML IV ONE (14:15)
[2018-01-06 14:19] VITALS: BP 152/80
== END 2018-01-06 16:30 | disposition home or self-care (01) ==
LOC: ER 10:28
DX: E11.65 Type 2 diabetes mellitus with hyperglycemia (principal); Z79.4 Long term (current) use of insulin; Z79.01 Long term (current) use of anticoagulants; Z79.899 Other long term (current) drug therapy; Z98.890 Other specified postprocedural states
CPT/HCPCS: 36415; 80053; 81001; 82948; 85025; 87088; 96361; 96374; 96376; 99284; J1815; J7030